=== PATIENT | male | born 1975 | race African-American/Black ===

== ENCOUNTER 2021-03-03 11:38 | Emergency (ER) | payer OTHER ==
[~2021-03-03] VITALS: Ht 175.3 cm; Wt 79.0 kg
[2021-03-03] MEDS ORDERED: BACITRACIN ZINC OINT UDPKT TOP ONE (12:15)
[2021-03-03] MEDS ORDERED: LIDOCAINE HCL/PF 1% 10 MG/ML 5ML VIAL INFIL ONE (12:15)
[2021-03-03] MEDS ORDERED: IBUPROFEN 600MG TABLET PO STA (12:15)
[2021-03-03 12:24] VITALS: BP 113/77
[2021-03-03] MEDS ORDERED: CEPHALEXIN 250MG CAPSULE PO STA (16:32)
[2021-03-03] MEDS ORDERED: CEPHALEXIN 250MG CAPSULE PO NR ×2 (16:45→17:15)
[2021-03-03] MEDS ORDERED: IBUP-2029 PO (16:53)
[2021-03-03] MEDS ORDERED: CEPH500C2 PO (16:53)
== END 2021-03-03 17:51 | disposition home or self-care (01) ==
LOC: ER 11:38
DX: S62.633B Displaced fracture of distal phalanx of left middle finger, initial encounter for open fracture (principal); S61.213A Laceration without foreign body of left middle finger without damage to nail, initial encounter; Z98.890 Other specified postprocedural states; W33.01XA Accidental discharge of shotgun, initial encounter; Y93.89 Activity, other specified; Y92.89 Other specified places as the place of occurrence of the external cause; Y99.8 Other external cause status
CPT/HCPCS: 29130; 73140; 99283; J3490

== ENCOUNTER 2021-05-25 10:29 | Emergency (ER) | payer MEDICAID, OTHER ==
[~2021-05-25] VITALS: Ht 203.2 cm; Wt 77.0 kg
[~2021-05-25 10:29] MED LIST: CEPH500C2 PO; IBUP-2029 PO
[2021-05-25 11:01] VITALS: BP 108/73
== END 2021-05-25 11:37 | disposition home or self-care (01) ==
LOC: ER 10:29
DX: Z48.02 Encounter for removal of sutures (principal)
CPT/HCPCS: 99281

== ENCOUNTER 2024-02-25 02:29 | Emergency (ER) | payer MEDICAID, OTHER ==
[2024-02-25] MEDS: SODIUM CHLORIDE 0.9% 1,000 ML IV ONE (02:36)
[2024-02-25] MEDS: MORPHINE SULFATE 4 MG/ML INJ (FOR IV/IM USE) IV STA (02:36)
[2024-02-25] MEDS: ONDANSETRON HCL 4MG/2ML INJ IV ONE (02:36)
[2024-02-25] MEDS: TETANUS, DIPHTHERIA, PERTUSSIS VAC/PF 0.5ML (>10YR OLD) IM ONE (02:38)
[2024-02-25] MEDS: ACETAMINOPHEN 1000MG/100ML 100 ML IV ONE (02:44)
[2024-02-25 02:45] LABS: CHLORIDE 110 mEq/L (98-107); POTASSIUM 3.6 mEq/L (3.5-5.1); SODIUM 144 mEq/L (136-145)
[2024-02-25 02:46] LABS: BASOPHILS % 1.1 % (0.0-2.0); CALCIUM 10.4 mg/dL (8.7-10.4); CARBON DIOXIDE 23 mEq/L (21-32); EOSINOPHILS % 1.2 % (0.0-5.0); HEMATOCRIT. 48.8 % (42.0-52.0); HEMOGLOBIN. 16.2 g/dL (14.0-18.0); LYMPHOCYTES % 49.2 % (20.0-50.0); MEAN CORPUSCULAR HEMOGLOBIN 31.9 pg (28.0-32.0); MEAN CORPUSCULAR HGB CONC 33.3 g/dL (31.0-37.0); MEAN CORPUSCULAR VOLUME 95.7 fL (80.0-94.0); MEAN PLATELET VOLUME 7.3 fl (7.4-10.4); MONOCYTES % 7.2 % (2.0-8.0); NEUTROPHILS % 41.3 % (40.0-76.0); PLATELET 264 x1000/uL (130-400); RED CELL DISTRIBUTION WIDTH 15.5 % (11.6-14.6); WHITE BLOOD COUNT 10.4 x1000/uL (4.5-11.0)
[2024-02-25 02:51] LABS: CREATININE 1.5 mg/dL (0.6-1.3); GLUCOSE 111 mg/dL (70-105); UREA NITROGEN BLOOD 11 mg/dL (9-23)
[2024-02-25 02:54] LABS: INR 0.9; PARTIAL THROMBOPLASTIN TIME 25.5 sec (23.4-31.0); PROTHROMBIN TIME 10.6 sec (9.6-11.0)
[2024-02-25 03:10] VITALS: BP 121/72; PULSE 77; RESP 17; TEMP 36.83628; O2SAT 100
== END 2024-02-25 03:17 | disposition short-term general hospital (02) ==
LOC: ER 02:29
DX: S31.113A Laceration without foreign body of abdominal wall, right lower quadrant without penetration into peritoneal cavity, initial encounter (principal); S31.010A Laceration without foreign body of lower back and pelvis without penetration into retroperitoneum, initial encounter; Z98.890 Other specified postprocedural states; W34.09XA Accidental discharge from other specified firearms, initial encounter; Y93.89 Activity, other specified; Y92.89 Other specified places as the place of occurrence of the external cause; Y99.8 Other external cause status
CPT/HCPCS: 99285; 96365; 96375; 71045; 80048; 83690; 85025; 85610; 85730; 86850; 86900; 86901; 36415; 72170; 90715; 90471; J2405; J2270; J7030; J0131